=== PATIENT | female | born 2000 | race Native Hawaiian/Other Pacific Islander ===

== ENCOUNTER 2021-02-28 15:18 | Emergency (ER) | payer OTHER ==
[2021-02-28 15:37] VITALS: BP 136/85
--- NOTE | 2021-02-28 17:06 | ED Physician Documentation ---
History of Present Illness - Stated complaint Stated Complaint: CHEST PX - Chief complaint Chief Complaint: General - History obtained from History obtained from: Patient - History of Present Illness Timing: Today Pain level max: 4 Pain level now: 3 - Additonal information Additional information: Patient is a 20-year-old female who presents to the emergency department with anterior chest wall pain. Described as sharp. Worse with palpation, movement and taking a deep breath. She did state that she received a Covid vaccination 2 days ago. No fever. No chills. No difficulty breathing. Denies any possibility of . No cardiac history. Review of Systems Constitutional: denies: Fever, Chills GI: denies: Vomiting, Diarrhea Skin: denies: Rash Musculoskeletal: denies: Neck pain, Back pain Neurologic: denies: Headache PD PAST MEDICAL HISTORY - Past Medical History Past Medical History: No - Past Surgical History Past Surgical History: No - Allergies Allergies/Adverse Reactions: Allergies Allergy/AdvReac Type Severity Reaction Status Date / Time No Known Drug Allergies Allergy Verified 02/28/21 15:22 - Living Situation Living Arrangement: reports: At home - Social History Does the pt smoke?: No Does the pt drink ETOH?: No Does the pt have substance abuse?: No PD ED PE NORMAL - Vitals Vital signs reviewed: Yes - General General: Alert and oriented X 3, No acute distress, Well developed/nourished - HEENT HEENT: PERRL, Moist mucous membranes - Neck Neck: Supple, no meningeal sign - Cardiac Cardiac: RRR, No murmur, Strong equal pulses - Respiratory Respiratory: No respiratory distress, Clear bilaterally - Abdomen Abdomen: Soft, Non tender, Non distended - Back Back: No spinal TTP - Derm Derm: Warm and dry - Extremities Extremities: No edema, No calf tenderness / cord - Neuro Neuro: Alert and oriented X 3 - Psych Psych: Normal mood, Normal affect - Free text exam Free text exam: Tender palpation across the anterior chest wall. Reproduces her pain. Mostly at the costochondral junction near ribs 3 through 5 on the sternal end. Results - Vitals Vitals: Vital Signs - 24 hr 02/28/21 15:22 Temperature 36.5 C Heart Rate 80 Respiratory 16 Rate Blood Pressure 136/85 H O2 Saturation 98 Oxygen O2 Source Room air - EKG (time done) 1529 Rate: Rate (enter#) (83) Rhythm: NSR [place]: Normal Intervals: Normal [place] QRS: Normal Ischemia: Normal ST segments PD MEDICAL DECISION MAKING - ED course Complexity details: reviewed results, re-evaluated patient, considered differential (No ST elevation ND, no aortic dissection, no PE, no tension pneumothorax, no aortic aneurysm), d/w patient ED course: Patient with what appears to be costochondritis. No skin changes. No crepitus. No signs of infection. We will utilize Motrin and Tylenol at home as needed for pain and have her follow-up with her doctor for further care. No evidence of pericarditis, myocarditis. Normal EKG. No evidence of pneumothorax or aortic aneurysm or PE. Patient counseled regarding signs and symptoms for which I believe and urgent re-evaluation would be necessary. Patient with good unde rstanding of and agreement to plan and is comfortable going home at this time This document was made in part using voice recognition software. While efforts are made to proofread this document, sound alike and grammatical errors may occur. Departure - Departure Disposition: 01 Home, Self Care Clinical Impression: Costochondritis Condition: Good Instructions: ED Chest Pain Costochondritis Follow-Up: your,doctor in 1 week if not better [Other] Comments: You can continue Motrin and Tylenol as needed for pain. Follow-up with your doctor in 1 week if not better. Return if you worsen. Discharge Date/Time: 02/28/21 17:18
== END 2021-02-28 17:18 | disposition home or self-care (01) ==
LOC: ED 15:18
DX: M94.0 Chondrocostal junction syndrome [Tietze] (principal)
CPT/HCPCS: 93005; 99282; 99283

== ENCOUNTER 2021-03-01 10:31 | Emergency (ER) | payer OTHER ==
[2021-03-01 11:08] LABS: BASOPHILS % (AUTO) 0.2 %; EOSINOPHILS % (AUTO) 0.6 %; HCT - HEMATOCRIT 41.7 % (37.0-47.0); HGB - HEMOGLOBIN 13.8 g/dL (12.0-16.0); LYMPHOCYTES # (AUTO) 1.1 10^3/uL (1.5-3.5); LYMPHOCYTES % (AUTO) 22.8 %; MEAN CORPUSCULAR HEMOGLOBIN 31.6 pg (27.0-31.0); MEAN CORPUSCULAR HGB CONC 33.1 g/dL (32.0-36.0); MEAN CORPUSCULAR VOLUME 95.4 fL (81.0-99.0); MEAN PLATELET VOLUME 11.8 fL (7.9-10.8); MONOCYTES # (AUTO) 0.6 10^3/uL (0.0-1.0); MONOCYTES % (AUTO) 11.3 %; NEUTROPHILS # (AUTO) 3.2 10^3/uL (1.5-6.6); NEUTROPHILS % (AUTO) 64.9 %; PLT - PLATELET COUNT 154 10^3/uL (130-450); RED BLOOD COUNT 4.37 10^6/uL (4.20-5.40); RED CELL DISTRIBUTION WIDTH 12.5 % (12.0-15.0); WHITE BLOOD COUNT 4.9 x10^3/uL (4.8-10.8)
[2021-03-01 11:19] LABS: ALBUMIN 4.1 g/dL (3.2-5.5); ALBUMIN/GLOBULIN RATIO 1.6 (1.0-2.2); BILIRUBIN,TOTAL 0.5 mg/dL (0.2-1.0); CREATININE 0.8 mg/dL (0.4-1.0); POTASSIUM 4.2 mmol/L (3.5-5.0); TOTAL PROTEIN 6.7 g/dL (6.7-8.2)
--- NOTE | 2021-03-01 11:21 | XRAY Report ---
PROCEDURE: Chest 1 View X-Ray INDICATIONS: Chest pain TECHNIQUE: One view of the chest was acquired. COMPARISON: None. FINDINGS: Surgical changes and devices: None. Lungs and pleura: No pleural effusions or pneumothorax. Lungs are clear. Mediastinum: Mediastinal contours appear normal. Heart size is normal. Bones and chest wall: No suspicious bony lesions. Overlying soft tissues appear unremarkable. IMPRESSION: 1. No acute cardiopulmonary disease. Reviewed by: Mark Cortes MD on 03/01/2021 11:20 AM PDT Approved by: Mark Cortes MD on 03/01/2021 11:20 AM PDT Station ID: [id number]
--- NOTE | 2021-03-01 13:20 | ED Physician Documentation ---
PD HPI CHEST PAIN - Stated complaint Stated Complaint: HEART PX - Chief complaint Chief Complaint: Cardiac - History obtained from History obtained from: Patient - Additional information Additional information: Patient comes emergency department chief complaint of ongoing throbbing substernal chest pain since receiving the Covid vaccine 2 days ago. She was seen here yesterday with a normal EKG and diagnosed with costochondritis. Patient returns today for ongoing pain with a sense of throbbing and states that her command told her to come here and find out if she could be cleared for work. No other complaints at this time. No shortness of breath, cough, fever, nausea, or lightheadedness. She otherwise feels well. Review of Systems Ten Systems: 10 systems reviewed and negative Constitutional: reports: Reviewed and negative Eyes: reports: Reviewed and negative Ears: reports: Reviewed and negative Nose: reports: Reviewed and negative Throat: reports: Reviewed and negative Cardiac: reports: Chest pain / pressure Respiratory: reports: Reviewed and negative GI: reports: Reviewed and negative : reports: Reviewed and negative Skin: reports: Reviewed and negative Musculoskeletal: reports: Reviewed and negative Neurologic: reports: Reviewed and negative Psychiatric: reports: Reviewed and negative Endocrine: reports: Reviewed and negative Immunocompromised: reports: Reviewed and negative PD PAST MEDICAL HISTORY - Past Surgical History Past Surgical History: No - Present Medications Home Medications: Ambulatory Orders Medication Instructions Recorded Confirmed No Known Home Medications 03/01/21 03/01/21 - Allergies Allergies/Adverse Reactions: Allergies Allergy/AdvReac Type Severity Reaction Status Date / Time No Known Drug Allergies Allergy Verified 03/01/21 10:49 - Social History Does the pt smoke?: No Smoking Status: Never smoker Does the pt drink ETOH?: No Does the pt have substance abuse?: No PD ED PE NORMAL - Vitals Vital signs reviewed: Yes - General General: Alert and oriented X 3, No acute distress, Well developed/nourished - HEENT HEENT: Atraumatic, PERRL, EOMI, Moist mucous membranes - Neck Neck: Supple, no meningeal sign - Cardiac Cardiac: RRR, No murmur, Strong equal pulses - Respiratory Respiratory: No respiratory distress, Clear bilaterally - Abdomen Abdomen: Soft, Non tender, Non distended - Derm Derm: Normal color, Warm and dry, No rash - Extremities Extremities: No deformity, No edema, No calf tenderness / cord - Neuro Neuro: Alert and oriented X 3 - Psych Psych: Normal mood, Normal affect Results - Vitals Vitals: Vital Signs - 24 hr 03/01/21 03/01/21 10:46 13:32 Temperature 36.2 C L Heart Rate 76 64 Respiratory 16 17 Rate Blood Pressure 142/83 H 125/64 O2 Saturation 99 100 Oxygen O2 Source Room air - EKG (time done) 1051 Rate: Rate (enter#) (71) Rhythm: NSR [place]: Normal QRS: Normal Ischemia: Normal ST segments Compare to prior EKG: Unchanged from prior EKG Computer interpretation: Agree with computer - Labs Labs: Laboratory Tests 03/01/21 03/01/21 03/01/21 11:02 11:02 11:02 WBC 4.9 RBC 4.37 Hgb 13.8 Hct 41.7 MCV 95.4 MCH 31.6 H MCHC 33.1 RDW 12.5 Plt Count 154 MPV 11.8 H Neut # (Auto) 3.2 Lymph # (Auto) 1.1 L [place] # (Auto) 0.6 Eos # (Auto) 0.0 Baso # (Auto) 0.0 Absolute Nucleated RBC 0.00 Nucleated RBC % 0.0 Sodium 139 Potassium 4.2 Chloride 105 Carbon Dioxide 26 Anion Gap 8.0 BUN 8 Creatinine 0.8 Estimated GFR (MDRD) 92 Glucose 109 H Calcium 9.0 Total Bilirubin 0.5 AST 19 ALT 11 Alkaline Phosphatase 51 Troponin I High Sens < 2.3 L Total Protein 6.7 Albumin 4.1 Globulin 2.6 Albumin/Globulin Ratio 1.6 Lipase 34 - Rads (name of study) CXR Radiology: Final report received, EMP read indepedently, See rad report (Negative) PD MEDICAL DECISION MAKING - ED course Complexity details: reviewed results, re-evaluated patient, considered differential, d/w patient ED course: I discussed with the patient that her lab work, chest x-ray, and EKG are normal today. I do not find evidence of a serious or emergent cause of her chest pain. We have discussed potential nonemergent causes and that this will be a self- limited symptom course. I have advised her that she may return to work tomorrow with no restrictions. Departure - Departure Disposition: 01 Home, Self Care Clinical Impression: Chest pain Qualifiers: Chest pain type: unspecified Qualified Code(s): R07.9 - Chest pain, unspecified Condition: Stable Instructions: ED Chest Pain NonCardiac Comments: KG, chest x-ray, and labs all look good. There is no evidence of an emergent cause of your chest pain. You may go back to work tomorrow as usual. Forms: Activity restrictions Discharge Date/Time: 03/01/21 13:34
[2021-03-01 13:35] VITALS: BP 125/64
== END 2021-03-01 13:34 | disposition home or self-care (01) ==
LOC: ED 10:31
DX: R07.9 Chest pain, unspecified (principal)
CPT/HCPCS: 36415; 80053; 83690; 84484; 85025; 93005; 99284

== ENCOUNTER 2023-07-04 13:00 | Outpatient (CLI) | payer OTHER | END 2023-07-04 13:01 | disposition home or self-care (01) | LOC: DI 13:00 | PROVIDERS: ATTEND Internal Medicine | DX: R07.89 Other chest pain (principal) | CPT/HCPCS: 93306 ==

== ENCOUNTER 2023-08-24 08:00 | Outpatient (CLI) | payer OTHER | END 2023-08-24 23:59 | disposition home or self-care (01) | LOC: LAB.N 08:00 | PROVIDERS: ATTEND Family Medicine | DX: R30.0 Dysuria (principal) | CPT/HCPCS: 87086 ==

== ENCOUNTER 2023-12-12 09:52 | Outpatient (CLI) | payer OTHER ==
--- NOTE | 2023-12-12 10:48 | Sleep Patient Instructions ---
Sleep Center Visit Summary - Patient Visit Information Reason for Visit: Initial consult for evaluation of sleep disordered breathing and other sleep issues. - Patient Instructions Instructions Attached: Sleep Study, Sleep Study Home Monitor Additional Instructions: You will be completing a sleep study, either an in-lab polysomnography (PSG) or home sleep study (HST). You will follow-up in the sleep care office after the sleep study is completed to hear the results and talk about therapy, if needed. You will be called by our office staff to schedule this appointment, but you may contact us with any questions. - Clinic Information Contact: [facility] [address] [place] [id number] [email or web address] T: [phone]
--- NOTE | 2023-12-12 10:51 | SLEEP CARE CONSULTATION ---
Information from patient questionnaire entered by Wilbert Gu. I have reviewed and concur with the information entered by Wilbert Gu. This document represents the service I personally performed and the decisions made by me, Alicia Weston ARNP. History of Present Illness Service Date and Time: 12/12/2023 09 Reason for Visit: New patient Chief Complaint: reports: Insomnia, Unrefreshed sleep, Snoring, Excessive daytime sleepiness, Observed pauses in breathing, Fatigue, Frequent awakenings at night Date of Onset: FEW MONTHS Usual bedtime: 2129 Time it takes to fall asleep: DEPENDS SOMETIMES LESS THAN FIVE MINS Snores at night: Yes Observed to quit breathing while asleep: Yes Sleeps alone due to snoring: No Number of times waking at night: 2-3 Reasons for waking at night: reports: Snoring, Gasping for air, Pain, Other (UNKNOWN). denies: Choking Toss, Turn, or Twitch while sleeping: Yes Recalls having dreams: No Usually gets out of bed at: 0530; weekends 10 AM Feels refreshed in the morning: No Morning headache: Yes (3-4 days a week, last 1-2 hours) Sleepy or fatigued during the day: Yes (a lot of unintentional naps) Takes day naps: Yes (1-2 hour nap; 1-2 times a week) Dreams during day naps: No Prior sleep studies: No Additional HPI information: I had the pleasure of seeing MOO IBARRA today regarding the possibility of her having a sleep disorder. Her current complaints are excessive daytime sleepiness, fatigue, frequent night awakenings, insomnia, observed pauses in breathing, snoring, headaches and unrefreshed sleep. She says she wakes up with headaches and migraines, 3-4 times a week, whether she sleep long time or short times. She will wake up with chest pain daily which usually takes 40-60 minutes to resolve. Her has told her that she snores loudly and will sometimes stop breathing when sleeping. She says she will sometimes wake up in "cold sweats". She does not feel rested in the morning and is fatigued during the day. She has a varied schedule with her work on shifts and travels a lot too. - Parasomnia Symptoms Ever been unable to move upon waking from sleep: No Walks in sleep: No Talks in sleep: No Ever acted out dreams in sleep: No Ever felt weak in the knees when startled or emotional: Yes (aches in knees, shaking with increase emotions, good or bad) Bothered by creepy, crawly, restless sensations in legs: No Problems with memory or concentration: Yes (memory) Subjective Initial Julian Sleepiness Scale score: 19 (12/12/23) Past Medical History Past Medical History: reports: Other (no significant medical history at this point but looking into heart murmur, possible anxiety and her thyroid) Social History The patient's occupation is a AM. Patient is and lives in . Have you smoked in the past 12 months: No Alcohol use: Yes Alcohol amount and frequency: 1 CUP EVERY FEW MONTHS Caffeine use: Yes Caffeine amount and frequency: 1 CUP ONCE A DAY Family History Family history of sleep disordered breathing: Yes Family Hx Sleep Apnea: Mother: Snoring, Father: Snoring, Sleep apnea - Untreated (trying to get machine now), Sibling: Snoring Allergies and Home Medications Known drug allergies: No Drug allergies reviewed: Yes Home medication list reviewed: Yes (none) Allergy and home medication list: Allergies No Known Drug Allergies Allergy (Verified 12/08/23 09:58) Home Medications Medication Instructions Recorded Confirmed Last Taken Type No Known Home Medications 12/12/23 12/12/23 Unknown History No Known Home Medications 12/12/23 12/12/23 Unknown History Review of Systems Weight gain over past 5 years: 10 Weight loss over past 5 years: 10 Cardiovascular: reports: chest pain, irregular heart rate or pulse. denies: high blood pressure Respiratory: reports: shortness of breath Gastrointestinal: reports: heartburn, nausea Neurological: reports: headaches. denies: head trauma Ear/Nose/Throat: reports: dry mouth/throat. denies: injury to nose, tonsillectomy Endocrine: reports: thyroid disease, sluggishness, too hot or cold, excessive thirst Musculoskeletal: reports: joint pain, neck pain, back pain Physical Exam Vital signs obtained and entered by: WILBERT Asif MA Blood Pressure: 131/65 (LEFT ARM) Cuff size: regular Heart Rate: 64 O2 Saturation: 99 Height: 5 ft 8 in Weight: 149 lb 3.2 oz Body Mass Index: 22.6 BMI Classification: Normal Neck circumference: 14.5 Mouth and throat: narrow oropharynx Soft palate: long Hard palate: normal Uvula: normal Uvula visualization: 0% Mallampati Class IV Tongue: enlarged in size with teeth akhtar on lateral edges Tonsils: small Neck: normal w/o lymphadenopathy or thyromegaly Heart: regular rate and rhythm Lungs: clear bilaterally Impression and Plan 1. Suspected Obstructive Sleep Apnea-Hypopnea Syndrome, as suggested by a history of loud and irregular snoring, observed cessation of breath while asleep, gasping or choking in sleep, morning headache, frequent awakening during the night, unrefreshed sleep, cognitive impairment, and excessive daytime sleepiness. Narrow oropharynx and obesity are common predisposing factors for obstructive sleep apnea-hypopnea syndrome. I recommend proceeding to polysomnography to confirm the diagnosis and to assess severity. If the patient has significant sleep disordered breathing, a manual CPAP titration study will also be performed to find the optimal treatment pressure. I informed the patient of what the sleep studies involve and after some discussion, obtained agreement to proceed. The pathophysiology of obstructive sleep apnea-hypopnea syndrome was discussed with the patient and health risks of cardiovascular and cerebrovascular disease if not treated. Risks of drowsy driving discussed in detail and patient advised to avoid long distance driving and to stick puller at the first sign of drowsiness. Patient agreed to plan. * Schedule polysomnography * Avoid long distance driving or driving when feeling sleepy. * Avoid alcohol, sedative and muscle relaxant around bedtime. * Review instructions provided by trained office staff on how to prepare for the sleep study. * Return for follow-up after sleep study completed. Plan: PSG/HST and followup Visit Type: In Office Time Spent with Patient (minutes): 30 Provider Statement: I spent 100% of the Face to Face Visit with the patient with greater than 50% spent counseling the patient and coordination of care.
[2023-12-12 11:00] VITALS: BP 131/65; O2SAT 99
== END 2023-12-12 09:53 | disposition home or self-care (01) ==
LOC: SC 09:52
PROVIDERS: ATTEND Nurse Practitioner Family
DX: R06.83 Snoring (principal); R06.81 Apnea, not elsewhere classified; G47.8 Other sleep disorders; R51.9 Headache, unspecified; R41.89 Other symptoms and signs involving cognitive functions and awareness; G47.10 Hypersomnia, unspecified
CPT/HCPCS: 99203; 99212

== ENCOUNTER 2024-01-03 12:25 | Outpatient (CLI) | payer OTHER | END 2024-01-03 12:26 | disposition home or self-care (01) | LOC: SC 12:25 | PROVIDERS: ATTEND Nurse Practitioner Family | DX: R06.83 Snoring (principal); G47.8 Other sleep disorders; R06.81 Apnea, not elsewhere classified; G47.10 Hypersomnia, unspecified; R51.9 Headache, unspecified | CPT/HCPCS: 95806 ==

== ENCOUNTER 2024-02-27 13:17 | Outpatient (CLI) | payer OTHER ==
--- NOTE | 2024-02-27 14:50 | SLEEP CARE CONSULTATION ---
Information from patient questionnaire entered by Jocelyn Gu. I have reviewed and concur with the information entered by Jocelyn Gu. This document represents the service I personally performed and the decisions made by , Alicia Weston ARNP. History of Present Illness Service Date and Time: 02/27/2024 131 Initial Lander Sleepiness Scale score: 19 (12/12/23) Current Lander Sleepiness Scale score: 22 Additional HPI information: MOO IBARRA returns for follow up and results of the recently performed home sleep study done on 01/03/24. The patient was informed of the following findings: No significant sleep disordered breathing with an average AHI of 1 and lolita oxygen saturation of 90%. I explained the pathophysiology behind obstructive sleep apnea. Patient does not have sleep apnea and was advised how weight gain could increase the risk of developing sleep apnea in the future. Patient has mild snoring. Snoring can be reduced by weight loss. Weight loss is best achieved with diet consult. Patient instructed to contact PCP for referral. Snoring can also be treated with an oral appliance from a dentist. Advised to check insurance coverage. In addition, an ENT evaluation can be do to see if other treatment is indicated. Patient was cautioned about risks of drowsy driving until sleepiness symptoms resolve. Sleep Study - Results Type of Sleep Study: Home sleep study (COMPLETED 01/03/24) Prior sleep studies: No Polysomnography/Home Sleep Study results: Physician Impression: The quality of the study is good. The length of the study is adequate (> 240 minutes). Please also see the tabulated and graphic data. 1. No significant sleep disordered breathing, with an AHI of 1.0/hr and [place]ita SaO2 of 90%. During the study, the patient had 6 apneas (6 obstructive, 0 central, 0 mixed) and 1 hypopnea. The longest episode lasted 56.5 seconds. The patient slept adequately in supine position (supine AHI was 1.4 and non-supine, 0.63). Allergies and Home Medications Known drug allergies: No Drug allergies reviewed: Yes Home medication list reviewed: Yes (no changes) Allergy and home medication list: Allergies No Known Drug Allergies Allergy (Verified 02/27/24 13:36) Review of Systems Review of systems same as previous: Yes (no changes) Physical Exam Vital signs obtained and entered by: JOCELYN Asif MA Blood Pressure: 122/77 Heart Rate: 72 O2 Saturation: 99 Height: 5 ft 8 in Weight: 160 lb 3.2 oz Body Mass Index: 24.3 BMI Classification: Normal Impression and Plan 1. Snoring but no significant sleep disordered breathing. Patient advised that often weight loss will reduce snoring as well as apnea risk. An oral appliance can also be used for snoring. This would require a dental consultation. Patient cautioned not to use other online appliances as can cause bite issues. Patient is advised to check if insurance will cover. An ENT consult can also be helpful to determine if any other treatment is an option. * Maintain a healthy weight * Avoid alcohol consumption near bedtime * The patient is cautioned about driving until sleepiness is completely resolved. * Return as needed for follow up. Counseling Topics: Weight control Visit Type: In Office Time Spent with Patient (minutes): 12 Provider Statement: I spent 100% of the Face to Face Visit with the patient with greater than 50% spent counseling the patient and coordination of care.
[2024-02-27 14:51] VITALS: BP 122/77; O2SAT 99
== END 2024-02-27 13:18 | disposition home or self-care (01) ==
LOC: SC 13:17
PROVIDERS: ATTEND Nurse Practitioner Family
DX: R06.83 Snoring (principal)
CPT/HCPCS: 99212